=== PATIENT | female | born 1990 | race American Indian/Alaskan Native ===

== ENCOUNTER 2017-11-27 07:55 | Emergency (ER) | payer MEDICAID ==
--- NOTE | 2017-11-27 08:10 | Emergency Department Report ---
ED Female HPI - General Chief complaint: Abdominal Pain Stated complaint: CRAMPS Time Seen by Provider: 11/27/17 08:07 Source: patient Mode of arrival: Ambulatory Limitations: No Limitations - History of Present Illness Initial comments: 27-year-old female past medical history 3 abortions 1 child at home currently presents with complaint of crampy suprapubic pain. Patient is awake alert and oriented 3 not in acute distress nontoxic appearing. Lucid. States she had a positive test this week and started developing intermittent crampy to sharp lower abdominal pain. States she has had some vaginal spotting but not her regular expected menstrual period. Last menstrual period 10/21/17. Denies any personal history of ectopic . Denies any intrauterine devices. MD Complaint: vaginal bleeding, pelvic pain Onset/Timin -: days(s) Location: suprapubic Radiation: suprapubic Severity: moderate Severity scale (0 -10): 5 Quality: stabbing Consistency: intermittent Improves with: none Are you Now?: Yes Last Menstrual Period: 10/21/17 EDC: 07/28/18 Associated Symptoms: vaginal bleeding, abdominal pain - Related Data Sexually active: Yes : 5 Para: 1 A: 1 Previous Rx's Medication Instructions Recorded Last Taken Type Acetaminophen [Acetaminophen TAB] 500 mg PO Q6HR PRN #30 tablet 11/27/17 Unknown Rx 21/Iron Fu/Folic Acid 1 each PO QDAY #30 tablet 11/27/17 Unknown Rx [ Complete Caplet] Allergies Allergy/AdvReac Type Severity Reaction Status Date / Time No Known Allergies Allergy Unverified 11/27/17 07:59 ED Review of Systems ROS: Stated complaint: CRAMPS Other details as noted in HPI ED Past Medical Hx - Past Medical History Previous Medical History?: Yes Additional medical history: x 3 - Surgical History Past Surgical History?: No - Social History Smoking Status: Former Smoker Substance Use Type: Marijuana - Medications Home Medications: Home Medications Medication Instructions Recorded Confirmed Last Taken Type Acetaminophen [Acetaminophen TAB] 500 mg PO Q6HR PRN #30 tablet 11/27/17 Unknown Rx 21/Iron Fu/Folic Acid 1 each PO QDAY #30 tablet 11/27/17 Unknown Rx [ Complete Caplet] ED Physical Exam - General Limitations: No Limitations General appearance: alert, in no apparent distress - Head Head exam: Present: atraumatic, normocephalic - Eye Eye exam: Present: normal appearance, PERRL, EOMI - ENT ENT exam: Present: mucous membranes moist - Neck Neck exam: Present: normal inspection - Respiratory Respiratory exam: Present: normal lung sounds bilaterally. Absent: respiratory distress - Cardiovascular Cardiovascular Exam: Present: regular rate, normal rhythm. Absent: systolic murmur, diastolic murmur, rubs, gallop - GI/Abdominal GI/Abdominal exam: Present: tenderness (positive suprapubic pain), normal bowel sounds - External exam: Present: normal external exam Speculum exam: Present: normal speculum exam Bi-manual exam: Present: normal bi-manual exam (no cervical motion tenderness or adnexal tenderness on physical examination) - Extremities Exam Extremities exam: Present: normal inspection - Back Exam Back exam: Present: normal inspection - Neurological Exam Neurological exam: Present: alert, oriented X3, CN II-XII intact, normal gait - Psychiatric Psychiatric exam: Present: normal affect, normal mood - Skin Skin exam: Present: warm, dry, intact, normal color. Absent: rash ED Course Vital Signs 11/27/17 07:59 Temperature 99.1 F Pulse Rate 105 H Respiratory 20 Rate O2 Sat by Pulse 100 Oximetry ED Medical Decision Making - Lab Data Result diagrams: 11/27/17 08:23 11/27/17 08:22 - Medical Decision Making A/P: , threatened miscarriage 1-ultrasound shows intrauterine approximately 5 weeks by estimation 2-urine shows no signs of infection patient reports no dysuria. No significant cervical motion tenderness or adnexal tenderness noted on exam 3-Tylenol when necessary for crampy pain, vitamins, I emphasized the importance of follow-up with [facility] to the patient. 4- I inform the patient that there is presence of a small subchorionic bleed which may indicate possible threatened miscarriage. I emphasized again the importance of following up with an [facility] TE[facility] regarding related issues. Critical care attestation.: If time is entered above; I have spent that time in minutes in the direct care of this critically ill patient, excluding procedure time. ED Disposition Clinical Impression: Qualifiers: Weeks of gestation: less than 8 weeks Qualified Code(s): Z3A.01 - Less than 8 weeks gestation of Abdominal pain in Qualifiers: Trimester: first trimester Qualified Code(s): O26.891 - Other specified related conditions, first trimester; R10.9 - Unspecified abdominal pain Disposition: TO HOME OR SELFCARE Is pt being admited?: No Does the pt Need Aspirin: No Condition: Stable Instructions: Abdominal Pain (ED), (ED), Threatened Miscarriage (ED) Prescriptions: Acetaminophen [Acetaminophen TAB] 500 mg PO Q6HR PRN #30 tablet PRN Reason: Pain 21/Iron Fu/Folic Acid [ Complete Caplet] 1 each PO QDAY #30 tablet Referrals: PRIMARY CARE, [Primary Care Provider] - 3-5 Days [facility] [Provider Group] - 3-5 Days [facility] [Provider Group] - 3-5 Days Forms: Work/School Release Form(ED) Time of Disposition: 10:36
[2017-11-27 08:28] LABS: Basophils % (Auto) 0.5 % (0.0-1.8); Eosinophils # (Auto) 0.1 K/mm3 (0.0-0.4); Eosinophils % (Auto) 1.5 % (0.0-4.3); Hematocrit 33.2 % (30.3-42.9); Hemoglobin 10.7 gm/dl (10.1-14.3); Lymphocytes # (Auto) 1.6 K/mm3 (1.2-5.4); Lymphocytes % (Auto) 24.7 % (13.4-35.0); Mean Corpuscular HGB Conc 32 % (30-34); Mean Corpuscular Volume 78 fl (79-97); Monocytes # (Auto) 0.4 K/mm3 (0.0-0.8); Monocytes % (Auto) 6.3 % (0.0-7.3); Platelet Count 257 K/mm3 (140-440); Red Blood Count 4.28 M/mm3 (3.65-5.03); Red Cell Distribution Width 19.8 % (13.2-15.2)
[2017-11-27 08:41] LABS: BUN/Creatinine Ratio 20; Blood Urea Nitrogen 10 mg/dL (7-17); Calcium 8.7 mg/dL (8.4-10.2); Hemolysis Index 20
[2017-11-27 08:49] LABS: Bacteria,Urine 1+ /HPF (Negative); Bilirubin,Urine NEG (Negative); Blood,Urine NEG (Negative); Color,Urine Yellow (Yellow); Mucus,Urine FEW /HPF; Protein,Urine <15 mg/dL mg/dL (Negative); Urobilinogen,Urine < 2.0 mg/dL (<2.0)
[2017-11-27 08:59] LABS: Mean Corpuscular Hemoglobin 25 pg (28-32)
--- NOTE | 2017-11-27 10:13 | Ultrasound Report ---
ULTRASOUND OB LESS THAN 14 WEEKS THIS ULTRASOUND OB TRANSVAGINAL HISTORY: Pain during . COMPARISON: None. TECHNIQUE: Transabdominal and transvaginal ultrasound with color doppler interrogation. FINDINGS: Uterus: The uterus is anteverted and measures 9.7 x 6.2 x 7.4 cm. No uterine mass. Normal cervix. Endometrium: 1.9 cm. There appears to be an intrauterine gestational sac containing a tiny yolk sac. No convincing pole or heart tones are detected at this time. Average gestational sac diameter measures 8.5 mm which correlates with a 5 week, 5 day . There is a small subchorionic hemorrhage anterior to the gestational sac. Right ovary: 2.4 x 1.5 x 2.9 cm. No focal abnormality. Left ovary: 3.1 x 2.1 x 2.5 cm. A 2.3 cm corpus luteum cyst is suspected in the left ovary. Trace fluid in the cul-de-sac appears physiologic. Normal color doppler interrogation. IMPRESSION: An intrauterine gestational sac containing a tiny yolk sac is identified. No pole or cardiac activity could be detected at this time. This may represent a normal early . Blighted ovum could be considered. Followup is recommended. Small subchorionic hemorrhage present
[2017-11-27 10:45] VITALS: BP 134/81
== END 2017-11-27 10:45 | disposition home or self-care (01) ==
LOC: ED 07:55
DX: O26.891 Other specified pregnancy related conditions, first trimester (principal); R10.9 Unspecified abdominal pain; Z3A.01 Less than 8 weeks gestation of pregnancy
CPT/HCPCS: 36415; 76801; 76817; 76830; 80048; 81001; 84702; 85025; 86900; 86901; 87210; 87591